=== PATIENT | male | born 1965 | race Caucasian/White ===

== ENCOUNTER → 2017-10-29 | Emergency (ER) | payer MEDICAID ==
[~2017-10-29] VITALS: Ht 180.3 cm; Wt 94.8 kg
[~2017-10-29] MED LIST: CEPHALEXIN500 M1 PO; IBU800 M1 PO; KEFLEX500 M1 PO; PERCOCET 10-321 EACH PO; PREDNISONE10 MG PO
== END ==
LOC: ED 09:58
DX: M70.22 Olecranon bursitis, left elbow (principal); F17.200 Nicotine dependence, unspecified, uncomplicated; R03.0 Elevated blood-pressure reading, without diagnosis of hypertension; Y93.89 Activity, other specified; Z79.899 Other long term (current) drug therapy

== ENCOUNTER 2020-09-02 15:01 | Inpatient (IN) | payer OTHER ==
[~2020-09-02] VITALS: Ht 180.3 cm; Wt 88.7 kg
[~2020-09-02 15:01] MED LIST changes: -Percocet 325 MG1 TAB PO; -VITAMIN D325 MCG PO
[2020-09-02 15:06] VITALS: BP 149/85
[2020-09-02 16:00] VITALS: BP 145/75
[2020-09-02 16:16] LABS: BASO # 0.1 10*3/uL (0.0-0.1); BASO % 0.3 % (0.0-1.0); EOS # 0.1 10*3/uL (0.0-0.4); EOS % 0.8 % (1.0-4.0); HEMATOCRIT 47.7 % (42.0-52.0); LYMPH # 2.2 10*3/uL (1.3-4.4); LYMPH % 14.1 % (27.0-41.0); MEAN CELL VOLUME 90.3 fl (80.0-94.0); MEAN CORPUSCULAR HGB 30.1 pg (27.0-31.0); MEAN CORPUSCULAR HGB CONC 33.3 g/dl (33.0-37.0); MEAN PLATELET VOLUME 8.9 fl (9.6-12.3); MONO # 1.4 10*3/uL (0.1-1.0); MONO % 9.1 % (3.0-9.0); NEUT # 11.9 10*3/uL (2.3-7.9); NEUT % 75.3 % (47.0-73.0); PLATELET COUNT AUTOMATED 266 10*3/uL (130-400); RED BLOOD COUNT 5.28 10*6/uL (4.50-5.90); RED CELL DISTRI WIDTH 12.4 % (0-14.5); WHITE BLOOD COUNT 15.8 10*3/uL (4.8-10.8)
[2020-09-02 16:29] LABS: ALBUMIN 3.8 gm/dl (3.1-4.5); ALKALINE PHOSPHATASE 72 U/L (45-117); BUN 9 mg/dl (7-24); CHLORIDE 104 mmol/L (98-107); CREATININE 0.89 mg/dL (0.70-1.30); POTASSIUM 3.7 mmol/L (3.5-5.1); SGOT/AST 17 IU/L (3-35); SGPT/ALT 23 U/L (12-78); SODIUM 137 mmol/L (136-145); TOTAL PROTEIN 8.6 gm/dL (6.4-8.2); URIC ACID 6.6 mg/dL (3.5-7.2)
[2020-09-02 18:00] VITALS: BP 116/82
[2020-09-03] VITALS (11 sets, daily range): BP systolic 139–188; BP diastolic 56–90
[2020-09-03 06:08] LABS: ALBUMIN 2.7 gm/dl (3.1-4.5); ALKALINE PHOSPHATASE 56 U/L (45-117); BUN 8 mg/dl (7-24); CHLORIDE 111 mmol/L (98-107); CHOLESTEROL 146 mg/dL (<200); CREATININE 0.75 mg/dL (0.70-1.30); HDL CHOLESTEROL 62 mg/dl (40-60); LDL CHOLESTEROL 56 mg/dL (9-159); POTASSIUM 3.9 mmol/L (3.5-5.1); SGOT/AST 13 IU/L (3-35); SGPT/ALT 19 U/L (12-78); SODIUM 141 mmol/L (136-145); TOTAL PROTEIN 6.9 gm/dL (6.4-8.2); TRIGLYCERIDES 141 mg/dl (<150); VLDL CHOLESTEROL 28 mg/dL (6-40)
[2020-09-03 06:13] LABS: HEMATOCRIT 39.6 % (42.0-52.0); MEAN CELL VOLUME 92.7 fl (80.0-94.0); MEAN CORPUSCULAR HGB 30.2 pg (27.0-31.0); MEAN CORPUSCULAR HGB CONC 32.6 g/dl (33.0-37.0); MEAN PLATELET VOLUME 9.3 fl (9.6-12.3); PLATELET COUNT AUTOMATED 228 10*3/uL (130-400); RED BLOOD COUNT 4.27 10*6/uL (4.50-5.90); RED CELL DISTRI WIDTH 12.5 % (0-14.5); WHITE BLOOD COUNT 13.2 10*3/uL (4.8-10.8)
[2020-09-03 06:53] LABS: INTERNATIONAL NORM RATIO 0.9 (2.0-3.5)
[2020-09-03 07:41] LABS: PLATELET SUFFICIENCY NORMAL (NORMAL); TOTAL CELLS COUNTED 100 #CELLS
[2020-09-03 10:40] LABS: BODY FLUID WBC 7650 /uL
[2020-09-03 10:56] LABS: BF LYMPHOCYTES 2 %; BF MONOCYTES 6 %; BF NEUTROPHILS 92 %
[2020-09-03 15:50] LABS: BF LYMPHOCYTES 2 %; BF MACROPHAGES 10 %; BF NEUTROPHILS 88 %
[2020-09-03 15:57] LABS: BODY FLUID WBC 32775 /uL
[2020-09-04] VITALS: BP 155/64
[2020-09-04 06:09] LABS: BASO % 0.1 % (0.0-1.0); HEMATOCRIT 39.8 % (42.0-52.0); LYMPH # 1.5 10*3/uL (1.3-4.4); LYMPH % 10.6 % (27.0-41.0); MEAN CELL VOLUME 91.1 fl (80.0-94.0); MEAN CORPUSCULAR HGB 30.4 pg (27.0-31.0); MEAN CORPUSCULAR HGB CONC 33.4 g/dl (33.0-37.0); MEAN PLATELET VOLUME 9.6 fl (9.6-12.3); MONO # 0.9 10*3/uL (0.1-1.0); MONO % 6.3 % (3.0-9.0); NEUT # 11.6 10*3/uL (2.3-7.9); NEUT % 82.6 % (47.0-73.0); PLATELET COUNT AUTOMATED 273 10*3/uL (130-400); RED BLOOD COUNT 4.37 10*6/uL (4.50-5.90); RED CELL DISTRI WIDTH 11.9 % (0-14.5)
[2020-09-04 08:00] VITALS: BP 163/79
[2020-09-04 10:08] LABS: ACID FAST SPEC PROCESSING Tissue Grinding (.)
[2020-09-04 12:00] VITALS: BP 155/65
[2020-09-04 16:00] VITALS: BP 163/73
[2020-09-04 20:00] VITALS: BP 156/70
[2020-09-05] VITALS: BP 158/62
[2020-09-05 06:36] LABS: BASO # 0.1 10*3/uL (0.0-0.1); BASO % 0.6 % (0.0-1.0); EOS # 0.3 10*3/uL (0.0-0.4); EOS % 2.4 % (1.0-4.0); HEMATOCRIT 42.1 % (42.0-52.0); LYMPH # 4.2 10*3/uL (1.3-4.4); LYMPH % 39.3 % (27.0-41.0); MEAN CELL VOLUME 92.1 fl (80.0-94.0); MEAN CORPUSCULAR HGB 29.5 pg (27.0-31.0); MEAN CORPUSCULAR HGB CONC 32.1 g/dl (33.0-37.0); MEAN PLATELET VOLUME 9.3 fl (9.6-12.3); MONO # 0.9 10*3/uL (0.1-1.0); MONO % 8.1 % (3.0-9.0); NEUT # 5.3 10*3/uL (2.3-7.9); NEUT % 49.3 % (47.0-73.0); PLATELET COUNT AUTOMATED 310 10*3/uL (130-400); RED BLOOD COUNT 4.57 10*6/uL (4.50-5.90); RED CELL DISTRI WIDTH 12.3 % (0-14.5); WHITE BLOOD COUNT 10.7 10*3/uL (4.8-10.8)
[2020-09-05 06:48] LABS: BUN 10 mg/dl (7-24); CHLORIDE 107 mmol/L (98-107); CREATININE 0.74 mg/dL (0.70-1.30); POTASSIUM 3.7 mmol/L (3.5-5.1); SODIUM 141 mmol/L (136-145)
[2020-09-05 08:00] VITALS: BP 174/91
[2020-09-05 12:00] VITALS: BP 145/63
[2020-09-05 12:11] LABS: ACID FAST SPEC PROCESSING Tissue Grinding (.)
[2020-09-05 16:00] VITALS: BP 183/71
[2020-09-05 20:00] VITALS: BP 159/70
[2020-09-06] VITALS: BP 159/70
[2020-09-06 08:00] VITALS: BP 154/73
[2020-09-06 12:00] VITALS: BP 145/86
[2020-09-06] MEDS ORDERED: VITAMIN D325 MCG PO (12:55)
[2020-09-06] MEDS ORDERED: Percocet 325 MG1 TAB PO (13:43)
[2020-10-21 14:12] LABS: ACID FAST CULTURE Negative (.)
[2020-10-21 14:12] LABS: ACID FAST CULTURE Negative (.)
== END 2020-09-06 14:05 | disposition home or self-care (01) | DRG 710 ==
LOC: ED 15:01 → 5E 16:48 → EDHOLD 16:48 → 5E 17:05
PROVIDERS: Emergency Medicine; Family Medicine; Orthopaedic Surgery; Radiology Diagnostic Radiology; Student in an Organized Health Care Education/Training Program; ADMIT Internal Medicine; ATTEND Internal Medicine
PROC: 0S9D0ZZ Drainage of Left Knee Joint, Open Approach (ICD-10-PCS; principal; 2020-09-03)
PROC: 0JBP0ZZ Excision of Left Lower Leg Subcutaneous Tissue and Fascia, Open Approach (ICD-10-PCS; 2020-09-03)
PROC: 0S9D3ZZ Drainage of Left Knee Joint, Percutaneous Approach (ICD-10-PCS; 2020-09-03)
PROC: 02HV33Z Insertion of Infusion Device into Superior Vena Cava, Percutaneous Approach (ICD-10-PCS; 2020-09-06)
DX: A41.9 Sepsis, unspecified organism (principal); R73.03 Prediabetes; E88.09 Other disorders of plasma-protein metabolism, not elsewhere classified; R73.9 Hyperglycemia, unspecified; M00.862 Arthritis due to other bacteria, left knee; B96.89 Other specified bacterial agents as the cause of diseases classified elsewhere; M25.462 Effusion, left knee; E66.3 Overweight; E44.1 Mild protein-calorie malnutrition; F17.210 Nicotine dependence, cigarettes, uncomplicated; Z71.6 Tobacco abuse counseling; Z80.1 Family history of malignant neoplasm of trachea, bronchus and lung; Z84.89 Family history of other specified conditions; Z79.52 Long term (current) use of systemic steroids; Z68.27 Body mass index [BMI] 27.0-27.9, adult

== ENCOUNTER → 2020-09-02 | Outpatient (CLI) | payer OTHER ==
[~2020-09-02] MED LIST changes: +Percocet 325 MG1 TAB PO; +VITAMIN D325 MCG PO
[2020-09-02 16:37] LABS: BODY FLUID WBC 69543 /uL
[2020-09-02 17:36] LABS: BF LYMPHOCYTES 2 %; BF NEUTROPHILS 98 %
[2020-09-04 10:08] LABS: ACID FAST SPEC PROCESSING Tissue Grinding (.)
[2020-10-21 14:12] LABS: ACID FAST CULTURE Negative (.)
== END | disposition home or self-care (01) ==
LOC: LAB 15:59
PROVIDERS: ATTEND Orthopaedic Surgery
DX: M25.462 Effusion, left knee (principal)

== ENCOUNTER → 2020-11-19 | Outpatient (CLI) | payer OTHER ==
[~2020-11-19] MED LIST changes: +Percocet 325 MG1 TAB PO; +VITAMIN D325 MCG PO
[2020-11-19 15:25] LABS: BASO # 0.1 10*3/uL (0.0-0.1); BASO % 0.8 % (0.0-1.0); EOS # 0.4 10*3/uL (0.0-0.4); EOS % 3.8 % (1.0-4.0); HEMATOCRIT 46.8 % (42.0-52.0); LYMPH % 42.1 % (27.0-41.0); MEAN CELL VOLUME 91.1 fl (80.0-94.0); MEAN CORPUSCULAR HGB 30.2 pg (27.0-31.0); MEAN CORPUSCULAR HGB CONC 33.1 g/dl (33.0-37.0); MEAN PLATELET VOLUME 9.2 fl (9.6-12.3); MONO # 0.9 10*3/uL (0.1-1.0); MONO % 9.3 % (3.0-9.0); NEUT # 4.2 10*3/uL (2.3-7.9); NEUT % 43.7 % (47.0-73.0); PLATELET COUNT AUTOMATED 355 10*3/uL (130-400); RED BLOOD COUNT 5.14 10*6/uL (4.50-5.90); RED CELL DISTRI WIDTH 12.6 % (0-14.5); WHITE BLOOD COUNT 9.6 10*3/uL (4.8-10.8)
[2020-11-19 15:41] LABS: ALBUMIN 3.7 gm/dl (3.1-4.5); ALKALINE PHOSPHATASE 66 U/L (45-117); BUN 14 mg/dl (7-24); CHLORIDE 106 mmol/L (98-107); CREATININE 0.98 mg/dL (0.70-1.30); POTASSIUM 3.7 mmol/L (3.5-5.1); SGOT/AST 24 IU/L (3-35); SGPT/ALT 33 U/L (12-78); SODIUM 139 mmol/L (136-145)
== END | disposition home or self-care (01) ==
LOC: LAB 14:11
PROVIDERS: ATTEND Internal Medicine
DX: T84.54XA Infection and inflammatory reaction due to internal left knee prosthesis, initial encounter (principal)

== ENCOUNTER → 2021-01-01 | Outpatient (CLI) | payer OTHER | END | disposition home or self-care (01) | LOC: RAD 10:45 | PROVIDERS: ATTEND Chiropractor Orthopedic | DX: M51.37 Other intervertebral disc degeneration, lumbosacral region (principal); M85.88 Other specified disorders of bone density and structure, other site; M54.16 Radiculopathy, lumbar region ==

== ENCOUNTER 2021-05-09 12:14 | Emergency (ER) | payer OTHER ==
[~2021-05-09] VITALS: Ht 180.3 cm; Wt 90.7 kg
[2021-05-09 12:46] LABS: BASO % 0.3 % (0.0-1.0); EOS # 0.2 10*3/uL (0.0-0.4); EOS % 1.7 % (1.0-4.0); HEMATOCRIT 45.2 % (42.0-52.0); LYMPH # 2.7 10*3/uL (1.3-4.4); LYMPH % 23.5 % (27.0-41.0); MEAN CELL VOLUME 94.2 fl (80.0-94.0); MEAN CORPUSCULAR HGB 31.3 pg (27.0-31.0); MEAN CORPUSCULAR HGB CONC 33.2 g/dl (33.0-37.0); MEAN PLATELET VOLUME 9.3 fl (9.6-12.3); MONO # 0.9 10*3/uL (0.1-1.0); MONO % 7.6 % (3.0-9.0); NEUT # 7.7 10*3/uL (2.3-7.9); NEUT % 66.6 % (47.0-73.0); PLATELET COUNT AUTOMATED 302 10*3/uL (130-400); RED CELL DISTRI WIDTH 12.3 % (0-14.5); WHITE BLOOD COUNT 11.5 10*3/uL (4.8-10.8)
[2021-05-09 13:02] LABS: ALBUMIN 3.6 gm/dl (3.1-4.5); ALKALINE PHOSPHATASE 59 U/L (45-117); BUN 11 mg/dl (7-24); CHLORIDE 106 mmol/L (98-107); CREATININE 1.08 mg/dL (0.70-1.30); POTASSIUM 4.5 mmol/L (3.5-5.1); SGOT/AST 19 IU/L (3-35); SGPT/ALT 27 U/L (12-78); SODIUM 138 mmol/L (136-145); TOTAL PROTEIN 7.7 gm/dL (6.4-8.2)
[2021-05-09 13:04] LABS: TROPONIN I < 0.015 ng/ml (<0.045)
[2021-05-09] MEDS ORDERED: NAPROSYN500 MG PO (14:18)
[2021-05-09] MEDS ORDERED: HYDROCODONE-AC1 EAC1 PO (14:18)
== END 2021-05-09 14:27 | disposition home or self-care (01) ==
LOC: ED 12:14
PROVIDERS: Physician Assistant
DX: M25.461 Effusion, right knee (principal); R07.89 Other chest pain; F17.200 Nicotine dependence, unspecified, uncomplicated; Z79.899 Other long term (current) drug therapy

== ENCOUNTER 2021-08-14 11:00 | Emergency (ER) | payer OTHER ==
[~2021-08-14 11:00] MED LIST changes: +HYDROCODONE-AC1 EAC1 PO; +NAPROSYN500 MG PO
[2021-08-14] MEDS ORDERED: VIBRAMYCIN100 MG PO (12:56)
[2021-08-14] MEDS ORDERED: POLYSPORIN OINT15 GM T (12:59)
== END 2021-08-14 13:14 | disposition home or self-care (01) ==
LOC: ED 11:00
DX: S40.861A Insect bite (nonvenomous) of right upper arm, initial encounter (principal); F17.210 Nicotine dependence, cigarettes, uncomplicated; W57.XXXA Bitten or stung by nonvenomous insect and other nonvenomous arthropods, initial encounter; Y93.89 Activity, other specified; Y92.89 Other specified places as the place of occurrence of the external cause; Y99.8 Other external cause status

== ENCOUNTER 2022-03-09 09:20 | Emergency (ER) | payer OTHER ==
[~2022-03-09] VITALS: Wt 92.1 kg
[~2022-03-09 09:20] MED LIST changes: +POLYSPORIN OINT15 GM T; +VIBRAMYCIN100 MG PO
[2022-03-09] MEDS ORDERED: MELOXICAM15 MG PO (10:00)
[2022-03-09] MEDS ORDERED: GABAPENTIN400 MG PO (10:00)
[2022-03-09] MEDS ORDERED: VIBRA-TAB100 MG PO (10:04)
== END 2022-03-09 10:09 | disposition home or self-care (01) ==
LOC: ED 09:20
DX: S30.861A Insect bite (nonvenomous) of abdominal wall, initial encounter (principal); A69.20 Lyme disease, unspecified; Z79.899 Other long term (current) drug therapy; W57.XXXA Bitten or stung by nonvenomous insect and other nonvenomous arthropods, initial encounter; Y93.89 Activity, other specified; Y92.89 Other specified places as the place of occurrence of the external cause; Y99.8 Other external cause status

== ENCOUNTER 2022-04-03 08:46 | Emergency (ER) | payer OTHER ==
[~2022-04-03] VITALS: Wt 90.7 kg
[~2022-04-03 08:46] MED LIST changes: +GABAPENTIN400 MG PO; +MELOXICAM15 MG PO; +VIBRA-TAB100 MG PO
[2022-04-03] MEDS ORDERED: IBU800 M1 PO (09:27)
[2022-04-03] MEDS ORDERED: PREDNISONE50 MG PO (10:49)
== END 2022-04-03 11:06 | disposition home or self-care (01) ==
LOC: ED 08:46
DX: M65.88 Other synovitis and tenosynovitis, other site (principal); F17.200 Nicotine dependence, unspecified, uncomplicated

== ENCOUNTER 2022-06-10 10:48 | Emergency (ER) | payer OTHER ==
[~2022-06-10] VITALS: Wt 95.3 kg
[~2022-06-10 10:48] MED LIST changes: +PREDNISONE50 MG PO
[2022-06-10] MEDS ORDERED: ULTRAM50 MG PO (12:32)
[2022-06-10] MEDS ORDERED: NAPROSYN500 MG PO (12:32)
== END 2022-06-10 12:40 | disposition home or self-care (01) ==
LOC: ED 10:48
DX: S46.911A Strain of unspecified muscle, fascia and tendon at shoulder and upper arm level, right arm, initial encounter (principal); F17.200 Nicotine dependence, unspecified, uncomplicated; F12.90 Cannabis use, unspecified, uncomplicated; Z79.899 Other long term (current) drug therapy; X50.1XXA Overexertion from prolonged static or awkward postures, initial encounter; Y93.89 Activity, other specified; Y92.89 Other specified places as the place of occurrence of the external cause; Y99.9 Unspecified external cause status

== ENCOUNTER 2022-10-17 10:29 | Emergency (ER) | payer OTHER ==
[~2022-10-17] VITALS: Ht 180.3 cm; Wt 95.3 kg
[~2022-10-17 10:29] MED LIST changes: +ULTRAM50 MG PO
[2022-10-17] MEDS ORDERED: PREDNISONE50 MG PO (12:19)
[2022-10-17] MEDS ORDERED: PERCOCET 5-3251 EACH PO (12:19)
== END 2022-10-17 12:27 | disposition home or self-care (01) ==
LOC: ED 10:29
DX: S60.222A Contusion of left hand, initial encounter (principal); F17.200 Nicotine dependence, unspecified, uncomplicated; W22.8XXA Striking against or struck by other objects, initial encounter; Y93.89 Activity, other specified; Y92.89 Other specified places as the place of occurrence of the external cause; Y99.8 Other external cause status

== ENCOUNTER → 2022-10-19 | Outpatient (CLI) | payer OTHER ==
[~2022-10-19] MED LIST changes: +PERCOCET 5-3251 EACH PO
== END | disposition home or self-care (01) ==
LOC: MRI 10-05 14:00
PROVIDERS: ATTEND Orthopaedic Surgery
DX: M75.121 Complete rotator cuff tear or rupture of right shoulder, not specified as traumatic (principal); M19.011 Primary osteoarthritis, right shoulder; M25.411 Effusion, right shoulder

== ENCOUNTER → 2022-11-19 | Day surgery (SDC) | payer OTHER ==
[2022-11-17 13:42] VITALS: BP 143/81
[~2022-11-19] VITALS: Ht 180.3 cm; Wt 93.0 kg
== END | disposition home or self-care (01) ==
LOC: SDC 11-17 13:15
PROVIDERS: ATTEND Orthopaedic Surgery
DX: M75.101 Unspecified rotator cuff tear or rupture of right shoulder, not specified as traumatic (principal); M19.011 Primary osteoarthritis, right shoulder; Z53.8 Procedure and treatment not carried out for other reasons

== ENCOUNTER 2023-10-26 14:41 | Emergency (ER) | payer MEDICARE | END 2023-10-26 16:54 | disposition left against medical advice (07) | LOC: ED 14:41 | DX: M25.532 Pain in left wrist (principal); Z53.21 Procedure and treatment not carried out due to patient leaving prior to being seen by health care provider ==

== ENCOUNTER → 2025-10-10 | Outpatient (CLI) | payer OTHER | END | disposition home or self-care (01) | LOC: ORTHO 08:40 | PROVIDERS: ATTEND Orthopaedic Surgery | DX: M85.811 Other specified disorders of bone density and structure, right shoulder (principal); M25.511 Pain in right shoulder ==